=== PATIENT | male | born 1980 | race Two or more races ===

== ENCOUNTER 2019-11-06 15:13 | Emergency (ER) | payer SELFPAY ==
--- NOTE | 2019-11-06 15:23 | EDM.PDOC ---
ED HPI GENERAL MEDICAL PROBLEM - General Chief Complaint: Upper Extremity Injury/Pain Stated Complaint: HAND INJURY Time Seen by Provider: 11/06/19 15:14 Source of Information: Reports: Patient History Limitations: Reports: No Limitations - History of Present Illness INITIAL COMMENTS - FREE TEXT/NARRATIVE: HISTORY AND PHYSICAL: History of present illness: Patient is a 39-year-old male who presents to the emergency room with complaints of a laceration across his finger. He was working with a sharp knife cutting some meat when he accidentally cut his finger resulting in the laceration, not controlled with a Band-Aid. He is unsure of his last tetanus update. He offers no other bodily injury nor systemic complaints. Review of systems: As per history of present illness and below otherwise all systems reviewed and negative. Past medical history: As per history of present illness and as reviewed below otherwise noncontributory. Surgical history: As per history of present illness and as reviewed below otherwise noncontributory. Social history: See social history for further information Family history: As per history of present illness and as reviewed below otherwise noncontributory. Physical exam: General: Well-developed and well-nourished 39-year-old male. Alert and oriented. Nontoxic-appearing and in no acute distress. HEENT: Atraumatic, normocephalic, pupils equal and reactive bilaterally, negative for conjunctival pallor or scleral icterus, mucous membranes moist, trachea midline. No drooling or trismus noted. No meningeal signs. No hot potato voice noted. Lungs: Clear to auscultation, breath sounds equal bilaterally, chest nontender. Heart: S1S2, regular rate and rhythm without overt murmur Abdomen: Soft, nondistended, nontender. Skin: 2 cm laceration to the right index finger on the palmar surface. Otherwise skin is intact, warm, dry. No lesions or rashes noted. Extremities: Atraumatic, moves all extremities per self without difficulty or deficits, negative for cords or calf pain. Neurovascular unremarkable. Neuro: Awake, alert, oriented. Cranial nerves II through XII unremarkable. Cerebellum unremarkable. Motor and sensory unremarkable throughout. Exam nonfocal. Notes: Area was thoroughly cleansed with chlorhexidine and wound wash. 1% lidocaine was used to anesthetize the area. 4-0 nylon, #[address] aced. Patient tolerated well. Bacitracin nonstick dressing applied. Patient declines an x-ray regardless of education. Tetanus has been updated. We discussed signs and symptoms that would prompt him to return to the emergency room. Follow-up and supportive care measures were reviewed and discussed. Voices understanding and is agreeable to plan of care. Denies any further questions or concerns at this time. Diagnostics: Declines Therapeutics: Tdap, Lidocaine, Bacitracin Prescription: None Impression: Laceration Plan: 1. Keep the area clean and dry. Continue to monitor for signs of infection. Sutures to be removed in 7-10 days. 2. Tylenol and/or ibuprofen as needed for pain management. 3. Please follow-up with your primary care provider in the next 1-2 days. Return to the ED as needed and as discussed. Definitive disposition and diagnosis as appropriate pending reevaluation and review of above. right index finger Pain Score (Numeric/FACES): 5 - Related Data Allergies Allergy/AdvReac Type Severity Reaction Status Date / Time No Known Allergies Allergy Verified 11/06/19 15:30 Home Meds: Home Meds . [No Known Home Meds] 11/06/19 [History] Review of Systems - Review of Systems Review Of Systems: Comprehensive ROS is negative, except as noted in HPI. ED EXAM, GENERAL - Physical Exam Exam: See Below (See dictation) ED TRAUMA EXTREMITY PROCEDURES - Laceration/Wound Repair Right index finger Lac/Wound Length In cm: 2 Appearance: Linear, Clean Distal NVT: Neuro & Vascular Intact, No Tendon Injury Anesthetic Type: Local Local Anesthesia - Lidocaine (Xylocaine): 1% Plain Local Anesthetic Volume: 2cc Skin Prep: Chlorhexidine (Hibiciens), Saline, Sterile Drape Saline Irrigation (cc's): 50 Exploration/Debridement/Repair: Wound Explored, In a Bloodless Field, Explored to Base, No Foreign Material Found Closed With: Sutures Suture Size: 4-0 # of Sutures: 6 Suture Type: Nylon, Interrupted, Simple Drain Placement: No Sterile Dressing Applied: Provider Tetanus Status Addressed: Yes Complications: No Course - Vital Signs Last Recorded V/S: Last Vital Signs Temp 97.0 F 11/06/19 15:27 Pulse 95 11/06/19 15:27 Resp 17 11/06/19 15:27 BP 180/106 H 11/06/19 15:27 Pulse Ox 95 11/06/19 15:27 - Orders/Labs/Meds Orders: Active Orders 24 hr Category Date Time Status Vaccines to be Administered [RC] PER UNIT ROUTINE Care 11/06/19 15:28 Active Meds: Medications Discontinued Medications Generic Name Dose Route Start Last Admin Trade Name Satish PRN Reason Stop Dose Admin Bacitracin 1 dose 11/06/19 15:28 11/06/19 15:39 Bacitracin Oint 1 Gm TOP 11/06/19 15:29 1 dose ONETIME ONE Administration Diphtheria/Tetanus/Acell Pertussis 0.5 ml 11/06/19 15:28 11/06/19 15:39 Adacel IM 11/06/19 15:29 0.5 ml .ONCE ONE Administration Lidocaine HCl 2 ml 11/06/19 15:28 11/06/19 15:39 Xylocaine-Mpf 1% INJECT 11/06/19 15:29 2 ml ONETIME ONE Administration Departure - Departure Time of Disposition: 15:50 Disposition: Home, Self-Care 01 Clinical Impression: Laceration - Discharge Information Instructions: Laceration Care, Adult, [id number] Referrals: PCP,None [Primary Care Provider] - Forms: ED Department Discharge Additional Instructions: The following information is given to patients seen in the emergency department who are being discharged to home. This information is to outline your options for follow-up care. We provide all patients seen in our emergency department with a follow-up referral. The need for follow-up, as well as the timing and circumstances, are variable depending upon the specifics of your emergency department visit. If you don't have a primary care physician on staff, we will provide you with a referral. We always advise you to contact your personal physician following an emergency department visit to inform them of the circumstance of the visit and for follow-up with them and/or the need for any referrals to a consulting specialist. The emergency department will also refer you to a specialist when appropriate. This referral assures that you have the opportunity for follow-up care with a specialist. All of these measure are taken in an effort to provide you with optimal care, which includes your follow-up. Under all circumstances we always encourage you to contact your private physician who remains a resource for coordinating your care. When calling for follow-up care, please make the office aware that this follow-up is from your recent emergency room visit. If for any reason you are refused follow-up, please contact the [facility] Emergency Department at and asked to speak to the emergency department charge nurse. [facility] [address] [place] [address] [facility] [address] [place] [phone] Thank you for choosing the [facility] emergency department in [place] for your medical needs today. It was a pleasure caring for you. You were seen in the emergency department for a finger laceration and sutures. 1. Keep the area clean and dry. Continue to monitor for signs of infection. Sutures to be removed in 7-10 days. 2. Tylenol and/or ibuprofen as needed for pain management. 3. Please follow-up with your primary care provider in the next 1-2 days. Return to the ED as needed and as discussed. Sepsis Event Note (ED) - Focused Exam Vital Signs: Vital Signs Temp Pulse Resp BP Pulse Ox 11/06/19 15:27 97.0 F 95 17 180/106 H 95 - My Orders Last 24 Hours: My Active Orders 11/06/19 15:28 Vaccines to be Administered [RC] PER UNIT ROUTINE - Assessment/Plan Last 24 Hours: My Active Orders 11/06/19 15:28 Vaccines to be Administered [RC] PER UNIT ROUTINE
[2019-11-06] MEDS ORDERED: Bacitracin Oint 1 GM U/D Packet TOP ONE (15:28)
[2019-11-06] MEDS ORDERED: Diphtheria,Pertussis(Acell),Tetanus Vaccine 0.5 ML Syringe IM ONE (15:28)
[2019-11-06] MEDS ORDERED: Lidocaine 1% PF 2 ML SDV INJECT ONE (15:28)
== END 2019-11-06 15:55 | disposition home or self-care (01) ==
LOC: MW.ED 15:13
DX: S61.210A Laceration without foreign body of right index finger without damage to nail, initial encounter (principal); Z23 Encounter for immunization; W26.0XXA Contact with knife, initial encounter
CPT/HCPCS: 12001; 90471; 90715; 99282; J2001

== ENCOUNTER 2020-12-03 10:48 | Emergency (ER) | payer OTHER ==
[2020-12-03] MEDS ORDERED: Sodium Chloride 0.9% 2.5 ML Syringe FLUSH PRN (10:54)
[2020-12-03] MEDS ORDERED: Sodium Chloride 0.9% 10 ML Syringe FLUSH PRN (10:54)
[2020-12-03] MEDS ORDERED: Sodium Chloride 0.9% 1,000 ML IV ONE (10:55)
--- NOTE | 2020-12-03 10:58 | EDM.PDOC ---
ED HPI GENERAL MEDICAL PROBLEM - General Chief Complaint: Burn Stated Complaint: ELECTRICUTED Time Seen by Provider: 12/03/20 10:49 Source of Information: Reports: Patient History Limitations: Reports: No Limitations - History of Present Illness INITIAL COMMENTS - FREE TEXT/NARRATIVE: 32-year-old male no past medical history presents for electrical shock injury. 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 He was cutting an animal carcass with a saw in his right hand and touched the animal carcass with his left hand which caused an immediate and electrical shock. He was not thrown to the ground and was able to drop the saw. He was experiencing pain and muscle spasm particularly in the right upper extremity. He notes that he still a little shaky in the arm but not really complaining of pain. He denies losing consciousness. He denies any chest pain or difficulty breathing. Denies any swelling in the affected extremity. Notes that he feels generalized weakness an d fatigue. He is declining analgesia. - Related Data Allergies Allergy/AdvReac Type Severity Reaction Status Date / Time No Known Allergies Allergy Verified 12/03/20 10:57 Home Meds: Home Meds . [No Known Home Meds] 11/06/19 [History] Past Medical History - Past Health History Medical/Surgical History: Denies Medical/Surgical History ED ROS GENERAL - Review of Systems Review Of Systems: Comprehensive ROS is negative, except as noted in HPI. ED EXAM, GENERAL - Physical Exam Exam: See Below Exam Limited By: No Limitations General Appearance: Alert, WD/WN, No Apparent Distress Ears: Hearing Grossly Normal Throat/Mouth: Normal Voice, No Airway Compromise Head: Atraumatic, Normocephalic Neck: Normal Inspection Respiratory/Chest: No Respiratory Distress, Lungs Clear, Normal Breath Sounds, No Accessory Muscle Use Cardiovascular: Normal Peripheral Pulses, Regular Rate, Rhythm GI/Abdominal: Soft, Non-Tender Extremities: Normal Inspection, Other (no swelling or claros, normal social services technician strength b/l UE, intact sensation, low suspicion compartment syndrome) Neurological: Alert, Normal Cognition, Normal Gait Psychiatric: Normal Affect, Normal Mood Skin Exam: Warm, Dry, Intact, Normal Color #1 Interpretation EKG Date: 12/03/20 Time: 10:57 Rhythm: NSR Rate (Beats/Min): 77 Bessie: Normal P-Wave: Present QRS: Normal ST-T: Normal QT: Normal MA/PQ Interval: 138 Comparison: NA - No Prior EKG EKG Interpretation Comments: normal EKG Course - Vital Signs Last Recorded V/S: Last Vital Signs Temp 98.9 F 12/03/20 10:58 Pulse 94 12/03/20 10:58 Resp 18 12/03/20 10:58 BP 181/116 H 12/03/20 10:58 Pulse Ox 97 12/03/20 10:58 - Orders/Labs/Meds Orders: Active Orders 24 hr Category Date Time Status EKG Documentation Completion [RC] STAT Care 12/03/20 10:54 Active Sodium Chloride 0.9% [Saline Flush] Med 12/03/20 10:54 Active 10 ml FLUSH ASDIRECTED PRN Sodium Chloride 0.9% [Saline Flush] Med 12/03/20 10:54 Active 2.5 ml FLUSH ASDIRECTED PRN Saline Lock Insert [OM.PC] Stat Oth 12/03/20 10:54 Ordered Medication Orders Sodium Chloride (Sodium Chloride 0.9% 10 Ml Syringe) 10 ml FLUSH ASDIRECTED PRN PRN Reason: Keep Vein Open Last Admin: 12/03/20 11:14 Dose: 10 ml Documented by: JAKE Sodium Chloride (Sodium Chloride 0.9% 2.5 Ml Syringe) 2.5 ml FLUSH ASDIRECTED PRN PRN Reason: Keep Vein Open Last Admin: 12/03/20 11:13 Dose: 2.5 ml Documented by: JAKE Labs: Laboratory Tests 12/03/20 12/03/20 12/03/20 Range/Units 11:01 11:01 11:01 WBC 7.06 (4.0-11.0) K/uL RBC 5.02 (4.50-5.90) M/uL Hgb 15.8 (13.0-17.0) g/dL Hct 45.4 (38.0-50.0) % MCV 90.4 (80.0-98.0) fL MCH 31.5 (27.0-32.0) pg MCHC 34.8 (31.0-37.0) g/dL RDW Std Deviation 49.8 (28.0-62.0) fl RDW Coeff of Deven 15 (11.0-15.0) % Plt Count 181 (150-400) K/uL MPV 9.60 (7.40-12.00) fL Neut % (Auto) 66.9 (48.0-80.0) % Lymph % (Auto) 22.5 (16.0-40.0) % Madison % (Auto) 8.1 (0.0-15.0) % Eos % (Auto) 1.8 (0.0-7.0) % Baso % (Auto) 0.7 (0.0-1.5) % Neut # (Auto) 4.7 (1.4-5.7) K/uL Lymph # (Auto) 1.6 (0.6-2.4) K/uL Madison # (Auto) 0.6 (0.0-0.8) K/uL Eos # (Auto) 0.1 (0.0-0.7) K/uL Baso # (Auto) 0.1 (0.0-0.1) K/uL Nucleated RBC % 0.0 /100WBC Nucleated RBCs # 0 K/uL Sodium 139 (136-148) mmol/L Potassium 3.9 (3.5-5.1) mmol/L Chloride 102 (98-107) mmol/L Carbon Dioxide 26.2 (21.0-32.0) mmol/L BUN 12 (7.0-18.0) mg/dL Creatinine 1.0 (0.8-1.3) mg/dL Est Cr Clr Drug Dosing 90.38 mL/min Estimated GFR (MDRD) > 60.0 ml/min Glucose 141 H (74-106) mg/dL Lactic Acid 1.6 (0.4-2.0) mmol/L Calcium 8.9 (8.5-10.1) mg/dL Total Bilirubin 0.5 (0.2-1.0) mg/dL AST 163 H (15-37) IU/L ALT 232 H (14-63) IU/L Alkaline Phosphatase 127 H (46-116) U/L Creatine Kinase 196 (26-308) U/L Troponin I < 0.050 (0.000-0.056) ng/mL Total Protein 8.1 (6.4-8.2) g/dL Albumin 3.9 (3.4-5.0) g/dL Globulin 4.2 H (2.6-4.0) g/dL Albumin/Globulin Ratio 0.9 (0.9-1.6) Urine Color Urine Appearance Urine pH (5.0-8.0) Ur Specific York (1.001-1.035) Urine Protein (NEGATIVE) mg/dL Urine Glucose (UA) (NEGATIVE) mg/dL Urine Ketones (NEGATIVE) mg/dL Urine Occult Blood (NEGATIVE) Urine Nitrite (NEGATIVE) Urine Bilirubin (NEGATIVE) Urine Urobilinogen (<2.0) EU/dL Ur Leukocyte Esterase (NEGATIVE) 12/03/20 Range/Units 11:13 WBC (4.0-11.0) K/uL RBC (4.50-5.90) M/uL Hgb (13.0-17.0) g/dL Hct (38.0-50.0) % MCV (80.0-98.0) fL MCH (27.0-32.0) pg MCHC (31.0-37.0) g/dL RDW Std Deviation (28.0-62.0) fl RDW Coeff of Deven (11.0-15.0) % Plt Count (150-400) K/uL MPV (7.40-12.00) fL Neut % (Auto) (48.0-80.0) % Lymph % (Auto) (16.0-40.0) % Madison % (Auto) (0.0-15.0) % Eos % (Auto) (0.0-7.0) % Baso % (Auto) (0.0-1.5) % Neut # (Auto) (1.4-5.7) K/uL Lymph # (Auto) (0.6-2.4) K/uL Madison # (Auto) (0.0-0.8) K/uL Eos # (Auto) (0.0-0.7) K/uL Baso # (Auto) (0.0-0.1) K/uL Nucleated RBC % /100WBC Nucleated RBCs # K/uL Sodium (136-148) mmol/L Potassium (3.5-5.1) mmol/L Chloride (98-107) mmol/L Carbon Dioxide (21.0-32.0) mmol/L BUN (7.0-18.0) mg/dL Creatinine (0.8-1.3) mg/dL Est Cr Clr Drug Dosing mL/min Estimated GFR (MDRD) ml/min Glucose (74-106) mg/dL Lactic Acid (0.4-2.0) mmol/L Calcium (8.5-10.1) mg/dL Total Bilirubin (0.2-1.0) mg/dL AST (15-37) IU/L ALT (14-63) IU/L Alkaline Phosphatase (46-116) U/L Creatine Kinase (26-308) U/L Troponin I (0.000-0.056) ng/mL Total Protein (6.4-8.2) g/dL Albumin (3.4-5.0) g/dL Globulin (2.6-4.0) g/dL Albumin/Globulin Ratio (0.9-1.6) Urine Color YELLOW Urine Appearance CLEAR Urine pH 6.0 (5.0-8.0) Ur Specific York 1.025 (1.001-1.035) Urine Protein NEGATIVE (NEGATIVE) mg/dL Urine Glucose (UA) NEGATIVE (NEGATIVE) mg/dL Urine Ketones NEGATIVE (NEGATIVE) mg/dL Urine Occult Blood NEGATIVE (NEGATIVE) Urine Nitrite NEGATIVE (NEGATIVE) Urine Bilirubin NEGATIVE (NEGATIVE) Urine Urobilinogen 0.2 (<2.0) EU/dL Ur Leukocyte Esterase NEGATIVE (NEGATIVE) Meds: Medications Generic Name Dose Route Start Last Admin Trade Name Freq PRN Reason Stop Dose Admin Sodium Chloride 10 ml 12/03/20 10:54 12/03/20 11:14 Sodium Chloride 0.9% 10 Ml Syringe FLUSH 10 ml ASDIRECTED PRN Administration Keep Vein Open Sodium Chloride 2.5 ml 12/03/20 10:54 12/03/20 11:13 Sodium Chloride 0.9% 2.5 Ml Syringe FLUSH 2.5 ml ASDIRECTED PRN Administration Keep Vein Open Discontinued Medications Generic Name Dose Route Start Last Admin Trade Name Freq PRN Reason Stop Dose Admin Sodium Chloride 1,000 mls @ 999 mls/hr 12/03/20 10:55 12/03/20 11:14 Normal Saline IV 12/03/20 11:55 999 mls/hr .Bolus ONE Administration - Re-Assessments/Exams Free Text/Narrative Re-Assessment/Exam: 12/03/20 10:58 We will get labs including lactate and total CPK and cardiac enzymes. Will get EKG. Will give IV fluid bolus. Patient declines analgesia. 12/03/20 12:27 Labs show transaminitis otherwise unremarkable. Patient remains well-appearing. Will discharge with primary care follow-up for repeat labs. Departure - Departure Time of Disposition: 12:28 Disposition: Home, Self-Care 01 Condition: Good Clinical Impression: Transaminitis Electric shock Qualifiers: Encounter type: initial encounter Qualified Code(s): T75.4XXA - Electrocution, initial encounter - Discharge Information Instructions: Electric Shock Injury, COVID-19 Vaccine Information Forms: ED Department Discharge Additional Instructions: Your labs show mild elevation of your liver function tests. They are otherwise unremarkable. No evidence of severe injury from your electric burn. You may feel weak, tired, achy today. Please stay well-hydrated and take Tylenol or Motrin for body aches. If you develop severe pain or swelling of your arm you should come back to the emergency department immediately. I do not believe that your elevated liver function tests are related to today's injury but they should be followed up with primary care physician. If you do not have a primary care physician information is provided below. The best way to protect yourself and others from COVID-19 is to take one of the three safe and effective vaccines that have been proven to substantially reduce risk of both infection and severe illness. [facility] is currently offering COVID vaccinations for anyone age 18 and older. To schedule an appointment call [phone]. Or, to be contacted by our clinics about scheduling your vaccine online, please go to [email or web address] The following information is given to patients seen in the emergency department who are being discharged to home. This information is to outline your options for follow-up care. We provide all patients seen in our emergency department with a follow-up referral. The need for follow-up, as well as the timing and circumstances, are variable depending upon the specifics of your emergency department visit. If you don't have a primary care physician on staff, we will provide you with a referral. We always advise you to contact your personal physician following an emergency department visit to inform them of the circumstance of the visit and for follow-up with them and/or the need for any referrals to a consulting specialist. The emergency department will also refer you to a specialist when appropriate. This referral assures that you have the opportunity for follow-up care with a specialist. All of these measure are taken in an effort to provide you with optimal care, which includes your follow-up. Under all circumstances we always encourage you to contact your private physician who remains a resource for coordinating your care. When calling for follow-up care, please make the office aware that this follow-up is from your recent emergency room visit. If for any reason you are refused follow-up, please contact the [facility] Emergency Department at and asked to speak to the emergency department charge nurse. Please follow up with your primary care physician. If you do not have a primary care physician, see below: [facility] [address] [place] [phone] [facility] [address] [place] [phone] Sepsis Event Note (ED) - Focused Exam Vital Signs: Vital Signs Temp Pulse Resp BP Pulse Ox 12/03/20 10:58 98.9 F 94 18 181/116 H 97 - My Orders Last 24 Hours: My Active Orders 12/03/20 10:54 EKG Documentation Completion [RC] STAT Sodium Chloride 0.9% [Saline Flush] 10 ml FLUSH ASDIRECTED PRN Sodium Chloride 0.9% [Saline Flush] 2.5 ml FLUSH ASDIRECTED PRN Saline Lock Insert [OM.PC] Stat - Assessment/Plan Last 24 Hours: My Active Orders 12/03/20 10:54 EKG Documentation Completion [RC] STAT Sodium Chloride 0.9% [Saline Flush] 10 ml FLUSH ASDIRECTED PRN Sodium Chloride 0.9% [Saline Flush] 2.5 ml FLUSH ASDIRECTED PRN Saline Lock Insert [OM.PC] Stat
[2020-12-03 11:55] LABS: BLOOD UREA NITROGEN,BUN 12 mg/dL (7.0-18.0); CARBON DIOXIDE,CO2 26.2 mmol/L (21.0-32.0); CHLORIDE,CL 102 mmol/L (98-107); GLUCOSE RANDOM 141 mg/dL (74-106); POTASSIUM,K 3.9 mmol/L (3.5-5.1); SODIUM,NA 139 mmol/L (136-148)
== END 2020-12-03 12:44 | disposition home or self-care (01) ==
LOC: MW.ED 10:48
DX: T75.4XXA Electrocution, initial encounter (principal); R74.01 Elevation of levels of liver transaminase levels
CPT/HCPCS: 36415; 80053; 81003; 82550; 83605; 84484; 85025; 93005; 99285; J7030